=== PATIENT | female | born 1980 | race Caucasian/White ===

== ENCOUNTER 2018-10-04 22:08 | Emergency (ER) | payer SELFPAY ==
[~2018-10-04] VITALS: Ht 165.1 cm; Wt 48.3 kg
[2018-10-04 22:17] VITALS: Ht 165.1 cm; Wt 48.3 kg
--- NOTE | 2018-10-05 00:23 | ERD ---
ER Documentation Chief Complaint Chief Complaint CP, DIAPHARETIC, SHAKY X'S 1 DAY HPI This is a 30-year-old female with chest pain in the right upper chest wall along with palpitations and diaphoresis and feeling shaky and anxious for the past 2 to 3 days. Denies any fevers or chills. Denies any other current complaints. Patient has history of anxiety. Denies any current problems. ROS All systems reviewed and are negative except as per history of present illness. Allergies Allergies: Coded Allergies: No Known Allergy (Unverified , 10/04/18) PMhx/Soc History of Surgery: Yes (appendix) Anesthesia Reaction: No Hx Neurological Disorder: No Hx Respiratory Disorders: No Hx Cardiac Disorders: Yes (hypotension) Hx Psychiatric Problems: No Hx Miscellaneous Medical Probl: No Hx Alcohol Use: Yes (socially) Hx Substance Use: No Hx Tobacco Use: No Smoking Status: Never smoker Physical Exam Vitals Vital Signs Date Temp Pulse Resp B/P (MAP) Pulse Ox O2 O2 Flow FiO2 Time Delivery Rate 10/04/18 97.1 83 18 130/82 99 22:17 (98) Physical Exam Const: No acute distress Head: Atraumatic Eyes: Normal Conjunctiva ENT: Normal External Ears, Nose and Mouth. Neck: Full range of motion. No meningismus. Resp: Clear to auscultation bilaterally Cardio: Regular rate and rhythm, no murmurs Abd: Soft, non tender, non distended. Normal bowel sounds Skin: No petechiae or rashes Back: No midline or flank tenderness Ext: No cyanosis, or edema Neur: Awake and alert Psych: Normal Mood and Affect Result Diagram: 10/04/18224910/04/182249 Results 24 hrs Laboratory Tests Test 10/04/18 22:50 10/04/18 23:23 White Blood Count 5.3 10^3/ul Red Blood Count 4.43 10^6/ul Hemoglobin 11.2 g/dl Hematocrit 34.9 % Mean Corpuscular Volume 78.8 fl Mean Corpuscular Hemoglobin 25.3 pg Mean Corpuscular Hemoglobin Concent 32.1 g/dl Red Cell Distribution Width 16.6 % Platelet Count 373 10^3/UL Mean Platelet Volume 10.1 fl Immature Granulocytes % 0.200 % Neutrophils % 49.5 % Lymphocytes % 36.0 % Monocytes % 13.1 % Eosinophils % 0.6 % Basophils % 0.6 % Nucleated Red Blood Cells % 0.0 /100WBC Immature Granulocytes # 0.010 10^3/ul Neutrophils # 2.7 10^3/ul Lymphocytes # 1.9 10^3/ul Monocytes # 0.7 10^3/ul Eosinophils # 0.0 10^3/ul Basophils # 0.0 10^3/ul Nucleated Red Blood Cells # 0.0 10^3/ul Sodium Level 138 mmol/L Potassium Level 3.6 mmol/L Chloride Level 105 mmol/L Carbon Dioxide Level 22 mmol/L Anion Gap 11 Blood Urea Nitrogen 19 mg/dl Creatinine 0.83 mg/dl Est Glomerular Filtrat Rate mL/min > 60 mL/min Glucose Level 96 mg/dl Calcium Level 9.2 mg/dl Troponin I < 0.012 ng/ml POC Beta HCG, Qualitative NEGATIVE Procedures/MDM Medical decision making: Is a very pleasant patient who comes in with atypical chest pain likely secondary to anxiety. She has no cardiac risk factors. Symptomology completely resolved with administration of Ativan. She is been advised to follow-up with her primary care physician and return for worsening symptoms. EKG: Rate/Rhythm: [Normal Sinus Rhythm] QRS, ST, T-waves: [No changes consistent w/ acute ischemia] Impression: [No evidence of ischemia or arrhythmia] Chest X-ray 1V Interpreted by me: Soft Tissue: No acute abnormaliti es Bones: No acute abnormalities Mediastinum/Cardiac Silhouette/Lungs: [No acute abnormalities] Departure Diagnosis: Primary Impression: Chest pain Chest pain type: unspecified Qualified Codes: R07.9 - Chest pain, unspecified Condition: Stable SAURABH MUIR Oct 05, 2018 00:23
[2018-10-05] MEDS ORDERED: LORA-441 PO (00:24)
[2018-10-05 00:43] VITALS: BP 99/82; PULSE 72; RESP 16
== END 2018-10-05 00:45 | disposition home or self-care (01) ==
LOC: E/R 22:08
DX: R07.89 Other chest pain (principal); R40.2142 Coma scale, eyes open, spontaneous, at arrival to emergency department; R40.2362 Coma scale, best motor response, obeys commands, at arrival to emergency department; R40.2252 Coma scale, best verbal response, oriented, at arrival to emergency department
CPT/HCPCS: 36415; 71045; 80048; 81025; 84484; 85025; 93005